=== PATIENT | female | born 1945 | race Caucasian/White ===

== ENCOUNTER 2017-06-03 17:24 | Observation (INO) | payer MEDICARE, BC ==
--- NOTE | 2017-06-03 18:23 | CT ---
CT OF BRAIN PERFORMED WITHOUT CONTRAST ENHANCEMENT: 06/03/17 HISTORY: Headache. There is mild ventricular and sulcal prominence which is fairly age appropriate. Some decreased atte nuation of the periventricular white matter consistent with some chronic white matter change. There are no signs of intracerebral hemorrhage or extra-axial fluid collections. Mastoid air cells and vis ualized sinuses are clear. IMPRESSION: No acute intracranial abnormalities. POS: [facility]
[2017-06-03 18:32] LABS: #Basophils 0.1 thou/uL (0.0-0.2); #Eosinphils 0.3 thou/uL (0.0-0.7); #Lymphocytes 1.9 thou/uL (1.20-3.40); #Monocytes 0.6 thou/uL (0.11-0.59); #Neutrophils 5.5 thou/uL (1.40-6.50); %Eosinophils 3.6 % (0.0-10.0); %Lymphocytes 22.8 % (21.0-51.0); %Monocytes 7.1 % (0.0-10.0); Hematocrit 39.4 % (36.0-47.0); Mean Platelet Volume 7.8 fL (7.4-10.4); Red Blood Cell (RBC) Count 4.13 mill/uL (4.20-5.40); White Blood Cell (WBC) Count 8.4 thou/uL (4.8-10.8)
[2017-06-03] MEDS ORDERED: Aspirin 325 MG TAB ONE (18:40)
[2017-06-03 18:47] LABS: PTT 24.5 SEC (22.9-36.1); Prothrombin Time 12.9 SEC (12.0-14.7)
[2017-06-03 18:48] LABS: Anion Gap 15 mmol/L (10-20); BUN (Urea Nitrogen) 23 mg/dL (9.8-20.1); CK (CPK) 111 U/L (29-168); Calc. Creatinine Clearance 0 mL/min (70-130); Calcium 9.7 mg/dL (7.8-10.44); Carbon Dioxide 25 mmol/L (23-31); Chloride 104 mmol/L (98-107); Estimated GFR-MDRD 44
[2017-06-03 18:52] LABS: Troponin I Less than 0.010 ng/mL (< 0.028)
[2017-06-03 22:17] LABS: Troponin I Less than 0.010 ng/mL (< 0.028)
[2017-06-03] MEDS ORDERED: hydrALAZINE 20 MG/ML VIAL SLOW IVP PRN (23:32)
[2017-06-04 00:09] VITALS: BMI 22.2
[2017-06-04 00:44] LABS: Troponin I Less than 0.010 ng/mL (< 0.028)
[2017-06-04] MEDS ORDERED: Acetaminophen 325 MG TAB PO PRN (00:47)
[2017-06-04] MEDS ORDERED: Ondansetron ODT 4 MG TAB PO PRN (00:47)
[2017-06-04] MEDS ORDERED: HYDROcodone/Acetaminophen 5/325 mg Tablet PO PRN (00:47)
[2017-06-04] MEDS ORDERED: HYDROcodone/Acetaminophen 10/325 mg Tablet PO PRN (00:47)
--- NOTE | 2017-06-04 04:41 | HP ---
DATE OF ADMISSION: 06/04/2017 TIME OF EVALUATION: 0015 hours. CHIEF COMPLAINT: Spell. HISTORY OF PRESENT ILLNESS: Ms. Morrison is a 71-year-old white female with history of TIA in 2010 and 2012, seen at [facility] who presents to our emergency department today via EMS for another spell. The patient describes the spell as a sudden jolt where she just did not \\\\"feel right.\\\\" It was fo llowed by some dizziness, which she felt off balance. She noted by her at home who is a ret ired physician and gave her for 81 mg aspirin about 15-20 minutes prior to arrival in the emergency department and then activated EMS. She did have a spell last week when she was driving and had a sudden onset of another spell where sh e felt unstable. She pulled over and her was driving the rest of the way. She denies any h eadache or slurred speech. No weakness or visual changes. No auditory hallucinations or gustatory hallucinations. She does have a history of a prior TIA in 2010 and 2012 which seemed to be somewhat different. In the emergency department, she had a CT scan of the head that was unremarkable, labs were normal, blood pressure was elevated 182/82 range, and she was subsequently transferred here from [facility] Emergency Department for further evaluation. Now, she feels back to her normal other than feeling a little off when her blood pressure was up on arrival. Hydralazine dropped her blood pressure down to 130s systolic, and she is feeling much bett er. PAST MEDICAL HISTORY: 1. Transient ischemic attack in 2010 and 2012. 2. Hypertension. 3. Hyperlipidemia. 4. Some kind of reactive airway disease that responded to Pulmicort. PAST SURGICAL HISTORY: Include rhinoplasty around age 25. She received ovarian cyst surgery in the 1970s. She had a KING/BSO. HOME MEDICATIONS: 1. Amlodipine 2.5 mg daily. 2. Pulmicort 90 mcg per dose 2 puffs daily. 3. Toprol-XL 6.25 mg p.o. b.i.d. 4. Zetia 10 mg p.o. at bedtime. 5. Aspirin 81 mg daily. 6. Premarin cream p.r.n. ALLERGIES: SULFA caused anaphylaxis. FAMILY HISTORY: Negative for history of clotting or bleeding disorder. Her mom had a stroke when s he was 83. SOCIAL HISTORY: Negative for habits x3. She is and lives locally. REVIEW OF SYSTEMS: A 10-point review of systems was performed, negative for all other systems excep t as stated as per HPI. PHYSICAL EXAMINATION: VITAL SIGNS: Temperature 97.7, pulse 67, blood pressure 182/82, respiratory rate 16, and sat 98% on room air. GENERAL: She is awake. She is alert. She is oriented x3. She appears to be in no acute distress. She has cold and feels like she is shivering and on inspection, she has no movements at all. HEENT: Normocephalic and atraumatic. Pupils are equal and reactive bilaterally, mucous membranes a re moist. She had no visible lesions. No thrush. NECK: Supple. She has good range of motion. Normal carotid upstrokes with no bruits, no thyromega ly. LUNGS: Clear to auscultation bilaterally without wheezes, rales or rhonchi. She has normal air mov ement. Good chest excursion. CARDIOVASCULAR: Normal S1, S2, no S3 or S4. No audible murmurs. ABDOMEN: Soft, is nontender and nondistended. No masses, no organomegaly. No rebound, rigidity or guarding. EXTREMITIES: Show no cyanosis, no clubbing, no edema, 2+ peripheral pulses. SKIN: Warm, moist, and well perfused without rash or lesions. MUSCULOSKELETAL: Normal to inspection. She has no inflamed joints, no palpable joint effusion and normal range of motion. NEUROLOGIC: Cranial nerves II-XII are grossly intact. She has no focal deficits. Normal speech pa ttern and 5/5 strength in all of her extremities. LABORATORY DATA: CMP is normal. Creatinine 1.21. Sugar 126. White blood cell count 8.4, hemoglobin 13.2, hematocrit 39.4 and platelet count of 195,000. She had troponin I that was undetectable x2 and a CK-MB of 1.2. RADIOGRAPHIC STUDIES: A brain CT was negative for acute intracranial abnormalities. ASSESSMENT AND PLAN: 1. Neurologic spell, possibly transient ischemic attack. We will get PT, OT, and speech therapy to evaluate, we will get a bilateral carotid ultrasounds. The patient is not willing to undergo MRI u nless necessary. We will ask Neurology to evaluate her and follow up on the recommendations. I do think she needs echo yet. We will follow up on the neurologist recommendations. 2. History of hypertension. We will continue home medications. She does seem to have labile hyper tension that is related to her spell that feeling poorly. We will increase amlodipine to 5 mg daily to see if we can get the swings to slow down and maintain better control. We will continue Toprol- XL. 3. Hyperlipidemia on Zetia. We will check a fasting lipid profile. 4. History of rectal varices on Pulmicort. We will continue.
[2017-06-04 05:16] LABS: #Eosinphils 0.4 thou/uL (0.0-0.7); #Lymphocytes 1.7 thou/uL (1.20-3.40); #Monocytes 0.6 thou/uL (0.11-0.59); #Neutrophils 4.2 thou/uL (1.40-6.50); %Basophils 0.6 % (0.0-1.0); %Eosinophils 5.2 % (0.0-10.0); %Lymphocytes 24.1 % (21.0-51.0); %Monocytes 8.8 % (0.0-10.0); Anion Gap 10 mmol/L (10-20); BUN (Urea Nitrogen) 20 mg/dL (9.8-20.1); Calc. Creatinine Clearance 51 mL/min (70-130); Calcium 9.6 mg/dL (7.8-10.44); Carbon Dioxide 27 mmol/L (23-31); Chloride 106 mmol/L (98-107); Estimated GFR-MDRD 56; Mean Platelet Volume 7.6 fL (7.4-10.4); Red Blood Cell (RBC) Count 3.96 mill/uL (4.20-5.40); White Blood Cell (WBC) Count 6.9 thou/uL (4.8-10.8)
[2017-06-04] MEDS ORDERED: Aspirin 325 mg Enteric Coated Tablet PO SCH (09:00)
[2017-06-04] MEDS ORDERED: Amlodipine 5 MG TAB PO SCH ×2 (09:00→21:00)
[2017-06-04] MEDS ORDERED: BUDESONIDE INH SCH (09:00)
[2017-06-04] MEDS: Enoxaparin Sodium 40 MG/0.4 ML SYRINGE SC SCH (09:17)
[2017-06-04] MEDS: Famotidine 20 MG TAB PO SCH ×2 (09:22→20:29)
--- NOTE | 2017-06-04 09:59 | ULT ---
ULTRASOUND CAROTID DOPPLER: HISTORY: Transient ischemic attack. COMPARISON: None. FINDINGS: No elevated peak systolic velocity to suggest hemodynamically significant stenosis. Moderate plaque of bilateral internal carotid arteries. Antegrade flow of both vertebral arteries. Right ICA/CCA ratio 0.84 and left ICA/CCA ratio 0.85. IMPRESSION: No hemodynamically significant stenosis. POS: [facility]
--- NOTE | 2017-06-04 11:18 | PDOC.PN ---
- Subjective Encounter Start Date: 06/04/17 Encounter Start Time: 11:24 Subjective: headache - Objective Resuscitation Status: Resuscitation Status FULL:Full Resuscitation Vital Signs & Weight: Vital Signs (12 hours) Temp Pulse Resp BP BP Pulse Ox 06/04/17 09:22 63 06/04/17 08:00 97.7 F 63 16 06/04/17 07:37 97.7 F 63 16 127/62 98 06/04/17 04:00 96 F L 62 18 113/56 L 94 L 06/04/17 00:20 139/65 06/03/17 23:47 182/82 H 06/03/17 23:35 97.7 F 69 16 179/82 H 98 Weight Weight 138 lb I&O: 06/03/17 06/04/17 06/05/17 06:59 06:59 06:59 Intake Total 150 240 Balance 150 240 Result Diagrams: 06/04/17 04:30 06/04/17 04:30 Phys Exam - Physical Examination HEENT: PERRLA, moist MMs Neck: no JVD Respiratory: no wheezing, no rales, clear to auscultation bilateral Cardiovascular: RRR Gastrointestinal: soft, non-tender Musculoskeletal: no edema Neurological: non-focal, moves all 4 limbs Psychiatric: normal affect, A&O x 3 Dx/Plan (1) TIA (transient ischemic attack) Status: Acute (2) Dyslipidemia Code(s): E78.5 - HYPERLIPIDEMIA, UNSPECIFIED Status: Chronic (3) Hypertension Code(s): I10 - ESSENTIAL (PRIMARY) HYPERTENSION Status: Acute (4) Headache Code(s): R51 - HEADACHE Status: Acute Qualifiers: Headache chronicity pattern: chronic headache (5) Reactive airway disease Code(s): J45.909 - UNSPECIFIED ASTHMA, UNCOMPLICATED Status: Chronic - Plan cont current plan of care neurology consulted -: fioricet for headache, did not want opiates and tylenol had not worked -: hesistant to have MRI, still undecided -: blood pressure better * .
[2017-06-04] MEDS: Fioricet 325/50/40 mg Tablet PO PRN ×2 (12:10→19:24)
[2017-06-04] MEDS: Mometasone Furoate 120 PUFF 220 MCG INH SCH (19:52)
[2017-06-05] MEDS: Famotidine 20 MG TAB PO SCH (08:55)
[2017-06-05] MEDS: Enoxaparin Sodium 40 MG/0.4 ML SYRINGE SC SCH (08:57)
[2017-06-05] MEDS ORDERED: FLU VACC TS2017-18 (>65YR) 0.5 ML SYRINGE IM ONE (09:00)
--- NOTE | 2017-06-05 14:46 | DIS ---
DATE OF ADMISSION: 06/04/2017 DATE OF DISCHARGE: 06/05/2017 DISCHARGE DIAGNOSES: 1. Hypertensive urgency. 2. Hypertensive encephalopathy. 3. Hypertension, essential. 4. Hyperlipidemia. 5. Remote history of paroxysmal atrial fibrillation. 6. Gastroesophageal reflux disease. CONSULTATION: Neurology, Dr. Erma Riojas. PROCEDURE: Carotid Doppler study that showed no hemodynamically significant stenosis. HOSPITAL COURSE: Ms. Morrison is a 71-year-old female with a second spell in a week where she felt dizzy or off balance. She presented to the Emergency Department for evaluation, was admitted after blood pressure revealed a systolic pressure greater than 180. The [facility] ER transfer red her here for further workup and evaluation. On arrival after receiving hydralazine IV, blood pressure was stable. She was ordered to get Norvas c and was watched. HOSPITAL COURSE: The patient was seen and examined. On arrival, blood pressure was stable. She wa s started on Norvasc starting first thing in the morning at 5 mg a day from her normal 2.5 mg daily. She actually refused her initial dose until the evening time when she normally takes it, and subsequ ently during the course of the day on 06/04, she did develop a blood pressure up to the 195 systolic range around 9-10 p.m. Since receiving Norvasc last night, her blood pressure remained stable. She had no further neurologic events, telemetry has been negative, CT scan of the brain in the ER wa s negative, carotid ultrasound was unremarkable. The patient was refusal of having an MRI done and had 2 previous episodes in 2010 and 2012 with negative workups. I asked Neurology to evaluate her; however, the patient wanted to see Dr. Riojas only, Dr. Riojas was not available the weekends, was watch ed overnight yesterday until today. Dr. Riojas was consulted, and after evaluating the patient, thought she was stable for outpatient foll owup and recommended no further workup. The patient was discharged home with outpatient followup. PHYSICAL EXAMINATION: The patient was seen and examined on the day of discharge. Discharge plan an d disposition was discussed with the patient face to face at the bedside. I came back to speak with her and spent approximately 45 minutes with the going over things. DISCHARGE MEDICATIONS: 1. Norvasc 5 mg p.o. q.p.m. Prescription given for 30 tablets with 2 refills. 2. Hydralazine 10 mg p.o. t.i.d. p.r.n. systolic pressure greater than 170. Prescription for refills given. 4. Metoprolol succinate 12.5 mg p.o. b.i.d. 5. Conjugated estrogen cream as taken at home. 6. Budesonide 90 mcg inhaler 1 puff inhaled daily. 7. Aspirin 81 mg daily to resume. FOLLOWUP APPOINTMENTS: 1. Primary care physician within a week. 2. Industrial Machine System Technician, Dr. Julio Reece, in 1-2 weeks. DISCHARGE DIET: Heart healthy diet. DISCHARGE ACTIVITY: As tolerated. DISCHARGE DISPOSITION: The patient will be discharged home via private vehicle.
[2017-06-05 15:17] VITALS: BP 168/80; TEMP 97.9
[2017-06-05] MEDS: Mometasone Furoate 120 PUFF 220 MCG INH SCH (18:36)
--- NOTE | 2017-06-05 23:25 | CON ---
DATE OF CONSULTATION: 06/05/2017 REASON FOR CONSULTATION: TIA. REFERRING PROVIDER: Odin Genao MD HISTORY OF PRESENT ILLNESS: Ms. Morrison is a pleasant, 71-year-old, female, who has been consulted for evaluation of TIA. History is obtained from the patient as well as her , who was present at bedside. Patient reports that on Monday she was at home and had a sudden onset whe re she felt a sudden jolt in her head and then followed by a feeling of swimmy headed. The sudden j olt lasted for less than 2 seconds and she just felt uncomfortable. After the episode, she had feel ing of swimmy headed that lasted for a couple of hours. During this episode, she did not have any h eadache, vision changes, numbness, tingling or weakness, difficulty with balance, chest pain, palpit ation. She reports that she has had similar episodes in the past including 3-4 episodes in the past 4-5 weeks. She had her first episode in 2010 and then another episode in 2012. For both of these episodes, she had been admitted to the [facility] where she had an extensive wor kup done including MRI brain, MR angiogram, carotid Dopplers, echocardiogram, which were all reporte d to be normal. In 2013 admission, she had been seen by Dr. Clemente, who had obtained an EEG, MRI o f brain, carotid Dopplers and echocardiogram, which were also normal. She was told by Dr. Clemente t hat she may have had anxiety attacks. She does report of some anxiety, but notes that these anxiety episodes are only present when she is driving as she does not feel comfortable. Otherwise, she den ies any episodes of anxiety. PAST MEDICAL HISTORY: Significant for hypertension, hyperlipidemia, TIA in 2010 and 2012, reactive airway disease. PAST SURGICAL HISTORY: Significant for rhinoplasty, ovarian cyst surgery and hysterectomy. CURRENT MEDICATIONS: Please review MAR. ALLERGIES: Include SULFA DRUGS. FAMILY HISTORY: Noncontributory. SOCIAL HISTORY: She denies smoking, alcohol use, or illicit drug use. She is retired and is marrie d. REVIEW OF SYSTEMS: As mentioned in the HPI, otherwise negative. PHYSICAL EXAMINATION: VITAL SIGNS: Blood pressure 168/80, pulse of 55, temperature of 97.9, respirations of 14, O2 sats o f 97% on room air. GENERAL: Well-developed, well-nourished, female, in no apparent distress. RESPIRATORY: Clear to auscultation bilaterally. CARDIOVASCULAR: Regular rate and rhythm. NEUROLOGICAL: Mental status: The patient is awake, alert, oriented x3. Speech and language: Flue nt speech. Cranial nerves: Pupils are 3 mm and reactive. Visual olivera are intact. Extraocular m uscles are intact. No nystagmus is noted. Face is symmetric. Tongue and uvula are midline. Motor exam showed normal tone and bulk with a 5/5 strength in both lower extremities. Sensory: Sensatio n is intact and symmetric. Deep tendon reflex is 2+ reflexes in both upper and lower extremities. Babinski: Plantar response is flexion bilaterally. Coordination intact to [id number]-[id number] and f oskar tapping bilaterally. LABORATORY DATA: Labs are reviewed, which included CBC, coag panel, BMP, CPK, CK-MB and troponin, w hich is all essentially normal. IMAGING STUDIES: CT head without contrast was reviewed, which showed no acute intracranial abnormal ity. Carotid Doppler results were reviewed, which showed no hemodynamically significant stenosis. IMPRESSION: 1. Hypertensive urgency. 2. Dizziness. ASSESSMENT AND PLAN: Ms. Morrison is a pleasant, 71-year-old, female, who presented with the episodes of dizziness and feeling swimmy headed. I had a long discussion with the patient and h er and explained that these episodes could be related to hypertensive urgency, it could also be related to cardiac arrhythmia, migraine aura without headache or anxiety. Given that she has a history of atrial fibrillation from which she self converted within 20 minutes, I am concerned that she may have paroxysmal atrial fibrillation. I have informed patient and that she needs to discuss with fountain dispenser to see if she would be benefited from having a cardiac loop monitor or elle n though the LINQ device monitor being placed. One of my other concern is that she may have had nura quin aura without the headache. She has a history of strong migraines in her early teenage years t hat lasted up until phase, this could also be secondary to anxiety. I have discussed wit h the patient and her that she needs to discuss with the primary care physician to see if an tianxiety medication may be beneficial. There is no further neurological workup needed from my antonia dpoint. Thank you for consultation.
== END 2017-06-05 19:38 | disposition home or self-care (01) ==
LOC: SCSER 17:24 → 2SE 19:00
PROVIDERS: ADMIT Internal Medicine Addiction Medicine; ATTEND Internal Medicine Addiction Medicine
DX: I16.0 Hypertensive urgency (principal); I67.4 Hypertensive encephalopathy; I10 Essential (primary) hypertension; E78.5 Hyperlipidemia, unspecified; I48.0 Paroxysmal atrial fibrillation; K21.9 Gastro-esophageal reflux disease without esophagitis; J45.909 Unspecified asthma, uncomplicated; Z88.5 Allergy status to narcotic agent; Z79.899 Other long term (current) drug therapy; Z79.82 Long term (current) use of aspirin; Z98.890 Other specified postprocedural states; Z86.73 Personal history of transient ischemic attack (TIA), and cerebral infarction without residual deficits; Z82.3 Family history of stroke
CPT/HCPCS: 70450; 80048 ×2; 82550; 82553; 84484 ×3; 85025 ×2; 85610; 85730; 93005; 93880; 96372; 96374; 97116; 97139 ×6; 99285; G0378; G8978; G8979; G8980; G8987; G8988; G8989; 36415; A4216; G8996-GN-CH; G8997-GN-CH; J0360; J1650

== ENCOUNTER 2017-12-01 13:26 | Outpatient (CLI) | payer MEDICARE, BC | END 2017-12-01 13:27 | disposition home or self-care (01) | LOC: BICMAMMO 13:26 | PROVIDERS: ATTEND Family Medicine | DX: Z12.31 Encounter for screening mammogram for malignant neoplasm of breast (principal); R92.1 Mammographic calcification found on diagnostic imaging of breast | CPT/HCPCS: 77063; 77067 ==

== ENCOUNTER 2019-03-13 11:01 | Outpatient (CLI) | payer MEDICARE, BC ==
--- NOTE | 2019-03-13 13:53 | MMO ---
Bilateral MAMMO Bilat Screen [facility]. CLINICAL HISTORY: Patient is 73 years old and is seen for screening. The patient has no family history of breast cancer. The patient has no personal history of cancer. The patient has a history of left Stereotatic Biopsy in 1991 - benign. VIEWS: The views performed were: bilateral craniocaudal with tomosynthesis and bilateral mediolateral oblique with tomosynthesis. FILMS COMPARED: The present examination has been compared to prior imaging studies performed at [facility] on 11/25/2015, 11/29/2016 and 12/01/2017, and at [facility] [place] on 11/05/2014. MAMMOGRAM FINDINGS: The breasts are heterogeneously dense, which could obscure a lesion on mammography. There are stable benign appearing calcifications seen in both breasts. There are no suspicious masses, suspicious calcifications, or new areas of architectural distortion. IMPRESSION: THERE IS NO MAMMOGRAPHIC EVIDENCE OF MALIGNANCY. A ROUTINE FOLLOW-UP MAMMOGRAM IN 1 YEAR IS RECOMMENDED. THE RESULTS OF THIS EXAM WERE SENT TO THE PATIENT. ACR BI-RADS Category 2 - Benign finding MAMMOGRAPHY NOTE: 1. A negative mammogram report should not delay a biopsy if a dominant of clinically suspicious mass is present. 2. Approximately 10% to 15% of breast cancers are not detected by mammography. 3. Adenosis and dense breasts may obscure an underlying neoplasm. Reported by: CHARLOTTE FERNANDEZ MD Electonically Signed: [id number]
== END 2019-03-13 11:02 | disposition home or self-care (01) ==
LOC: BICMAMMO 11:01
PROVIDERS: ATTEND Family Medicine
DX: Z12.31 Encounter for screening mammogram for malignant neoplasm of breast (principal); Z91.89 Other specified personal risk factors, not elsewhere classified
CPT/HCPCS: 77063; 77067

== ENCOUNTER 2020-03-17 13:28 | Outpatient (CLI) | payer MEDICARE, BC ==
--- NOTE | 2020-03-17 16:05 | MMO ---
Bilateral MAMMO Bilat Screen [facility]. CLINICAL HISTORY: Patient is 74 years old and is seen for screening. The patient has no family history of breast cancer. The patient has no personal history of cancer. The patient has a history of left Stereotatic Biopsy in 1991 - benign. VIEWS: The views performed were: bilateral craniocaudal with tomosynthesis and bilateral mediolateral oblique with tomosynthesis. FILMS COMPARED: The present examination has been compared to prior imaging studies performed at [facility] on 11/25/2015, 11/29/2016, 12/01/2017 and 03/13/2019. This study has been interpreted with the assistance of computer-aided detection. MAMMOGRAM FINDINGS: The breasts are heterogeneously dense, which could obscure a lesion on mammography. There are stable benign appearing calcifications seen in both breasts. There are no suspicious masses, suspicious calcifications, or new areas of architectural distortion. IMPRESSION: THERE IS NO MAMMOGRAPHIC EVIDENCE OF MALIGNANCY. A ROUTINE FOLLOW-UP MAMMOGRAM IN 1 YEAR IS RECOMMENDED. THE RESULTS OF THIS EXAM WERE SENT TO THE PATIENT. ACR BI-RADS Category 2 - Benign finding MAMMOGRAPHY NOTE: 1. A negative mammogram report should not delay a biopsy if a dominant of clinically suspicious mass is present. 2. Approximately 10% to 15% of breast cancers are not detected by mammography. 3. Adenosis and dense breasts may obscure an underlying neoplasm. Reported by: MATY SALINAS MD Electonically Signed: [id number]
== END 2020-03-17 13:29 | disposition home or self-care (01) ==
LOC: BICMAMMO 13:28
PROVIDERS: ATTEND Family Medicine
DX: Z12.31 Encounter for screening mammogram for malignant neoplasm of breast (principal); Z91.89 Other specified personal risk factors, not elsewhere classified
CPT/HCPCS: 77063; 77067

== ENCOUNTER 2021-03-24 11:08 | Outpatient (CLI) | payer MEDICARE, BC | END 2021-03-24 11:09 | disposition home or self-care (01) | LOC: BICMAMMO 11:08 | PROVIDERS: ATTEND Family Medicine | DX: Z12.31 Encounter for screening mammogram for malignant neoplasm of breast (principal) | CPT/HCPCS: 77063; 77067 ==

== ENCOUNTER 2022-06-10 09:53 | Outpatient (CLI) | payer MEDICARE, BC | END 2022-06-10 09:54 | disposition home or self-care (01) | LOC: BICMAMMO 09:53 | PROVIDERS: ATTEND Family Medicine | DX: Z12.31 Encounter for screening mammogram for malignant neoplasm of breast (principal); Z91.89 Other specified personal risk factors, not elsewhere classified | CPT/HCPCS: 77063; 77067 ==